=== PATIENT | female | born 1980 | race African-American/Black ===

== ENCOUNTER 2018-09-19 09:37 | Emergency (ER) | payer BC, OTHER ==
[2018-09-19] MEDS ORDERED: Dexamethasone 4 MG TAB ONE (09:52)
[2018-09-19] MEDS ORDERED: Bicillin LA 1.2 MILLION UNITS/2 ML SYRINGE ONE (09:57)
== END 2018-09-19 10:11 | disposition home or self-care (01) ==
LOC: BURERS 09:37
DX: J02.0 Streptococcal pharyngitis (principal)
CPT/HCPCS: 87081; 87430; 96372; J0561; J8540

== ENCOUNTER 2022-03-21 21:11 | Emergency (ER) | payer BC ==
[2022-03-21] MEDS ORDERED: predniSONE 20 MG TAB ONE (21:34)
[2022-03-21] MEDS ORDERED: hydrOXYzine 25 MG TAB ONE (21:34)
== END 2022-03-21 21:39 | disposition home or self-care (01) ==
LOC: BURERS 21:11
DX: T63.461A Toxic effect of venom of wasps, accidental (unintentional), initial encounter (principal)
CPT/HCPCS: 99282; J7512

== ENCOUNTER 2022-08-31 10:34 | Outpatient (CLI) | payer BC | END 2022-08-31 10:35 | disposition home or self-care (01) | LOC: BURRAD 10:34 | PROVIDERS: ATTEND Family Medicine | DX: J16.8 Pneumonia due to other specified infectious organisms (principal); J90 Pleural effusion, not elsewhere classified; R91.8 Other nonspecific abnormal finding of lung field | CPT/HCPCS: 71046 ==

== ENCOUNTER 2022-11-06 15:53 | Outpatient (CLI) | payer BC ==
[2022-11-06 16:27] LABS: ALT (SGPT) 9 U/L (8-55); AST (SGOT) 19 U/L (5-34); Albumin 4.3 g/dL (3.5-5.0); Alkaline Phosphatase 75 U/L (40-110); Anion Gap 13 mmol/L (10-20); BUN (Urea Nitrogen) 8 mg/dL (7.0-18.7); Bilirubin, Total 0.3 mg/dL (0.2-1.2); Calc. Creatinine Clearance 0 mL/min (70-130); Calcium 8.9 mg/dL (7.8-10.44); Carbon Dioxide 22 mmol/L (22-29); Chloride 107 mmol/L (98-107); Estimated GFR 107; Globulin 3.3 g/dL (2.4-3.5); Glucose 90 mg/dL (70-105); Potassium 3.8 mmol/L (3.5-5.1); Protein, Total 7.6 g/dL (6.0-8.3); Sodium 138 mmol/L (136-145)
[2022-11-06 16:44] LABS: #Lymphocytes 2.8 thou/uL (1.20-3.40); #Monocytes 0.8 thou/uL (0.11-0.59); #Neutrophils 3.8 thou/uL (1.40-6.50); %Basophils 2.1 % (0.0-1.0); %Eosinophils 1.1 % (0.0-10.0); %Lymphocytes 36.2 % (21.0-51.0); %Monocytes 10.2 % (0.0-10.0); %Neutrophils 50.4 % (42.0-75.0); Mean Corpuscular Hemoglobin 15.1 pg (27.0-31.0); Mean Platelet Volume 8.4 fL (7.4-10.4); Platelet Count 582 10x3/uL (130-400); RBC Distribution Width 19.8 % (11.5-14.5); Red Blood Cell (RBC) Count 3.74 mill/uL (4.20-5.40); White Blood Cell (WBC) Count 7.6 10x3/uL (4.8-10.8)
[2022-11-06 16:45] LABS: #Basophils 0.2 thou/uL (0.0-0.2); #Eosinphils 0.1 thou/uL (0.0-0.7)
[2022-11-06 16:51] LABS: Hemoglobin 5.6 g/dL (12.0-16.0)
[2022-11-06 17:17] LABS: Thyroid Stimulating Hormone 0.9143 uIU/mL (0.35-4.94)
[2022-11-06 17:19] LABS: Hypochromia MODERATE=16-30 cells (100X) (0-5/hpf); MDiff Complete? YES; Microcytosis MODERATE=15-30 cells (100X) (0-5/hpf); Platelet Morphology Comment Appears Increased; Reflex for Review?? NO
[2022-11-06 22:26] LABS: Ferritin 6.23 ng/mL (10-291)
== END 2022-11-06 15:54 | disposition home or self-care (01) ==
LOC: BURRAD 15:53
PROVIDERS: ATTEND Family Medicine
DX: R06.02 Shortness of breath (principal); J18.9 Pneumonia, unspecified organism
CPT/HCPCS: 36415; 71046; 80053; 82728; 84443; 85025